=== PATIENT | male | born 1950 | race Caucasian/White ===

== ENCOUNTER 2021-11-13 13:40 | Emergency (ER) | payer MEDICARE ==
[~2021-11-13] VITALS: Ht 177.8 cm; Wt 90.7 kg
== END 2021-11-13 17:18 | disposition home or self-care (01) ==
LOC: ER 13:40
DX: S50.812A Abrasion of left forearm, initial encounter (principal); S50.02XA Contusion of left elbow, initial encounter; Z88.0 Allergy status to penicillin; W19.XXXA Unspecified fall, initial encounter
CPT/HCPCS: 99282; A9270